=== PATIENT | female | born 1935 | race Caucasian/White ===

== ENCOUNTER 2018-03-22 06:02 | Inpatient (IN) ==
[2018-03-22] MEDS ORDERED: Sodium Chlor 0.9% Inj 60 ML, Bupivacaine Liposo PF 1.3% Inj 20 ML, Bupivacaine/Epi PF 0... P-ARTICULR ONE ×3 (06:50)
[2018-03-22] MEDS ORDERED: Chlorhexidine Gluconate 2% 1 Pack (2 Cloths) TOPICAL ONE (07:00)
[2018-03-22] MEDS ORDERED: SODIUM CHLOR 0.9% IV.SIG SCH (07:00)
[2018-03-22] MEDS ORDERED: TRANEXAMIC ACID IV.SIG SCH (07:00)
[2018-03-22] MEDS ORDERED: Metoprolol Tartrate 25 MG Tablet PO ONE (07:00)
[2018-03-22] MEDS ORDERED: Vancomycin Inj 1,000 MG in Sodium Chlor 0.9% Inj 250 ML IV.SIG SCH (07:00)
[2018-03-22] MEDS ORDERED: Chlorhexidine 4% Topical 120 APPLIC/120 ML Bottle TOPICAL SCH (07:00)
[2018-03-22] MEDS ORDERED: ceFAZolin 2 GM Premix Inj 2 GM/50 ML PIGGYBACK IV.SIG SCH (07:00)
[2018-03-22] MEDS ORDERED: Sodium Chlor 0.9% Inj 500 ML IV.CONT ONE (07:00)
[2018-03-22 07:21] VITALS: BP 160/75; PULSE 65; RESP 20; TEMP 98.2; O2SAT 96
[2018-03-22 07:26] LABS: Bacteria,Urine Rare /hpf; Bilirubin,Urine Negative (Negative); Clarity,Urine Hazy (Clear); Color,Urine Yellow (Yellw/Straw); Glucose,Urine (UA) Negative (Negative); Leukocyte Esterase,Urine Trace (Negative); Mucus,Urine Many /lpf (Occasional); Nitrite,Urine Negative (Negative); Squamous Epithelial Cell,Urine 4 /hpf (0-5)
== END 2018-03-22 07:52 | disposition home or self-care (01) ==
LOC: HSDI 06:02
PROVIDERS: ADMIT Orthopaedic Surgery Orthopaedic Surgery of the Spine; ATTEND Orthopaedic Surgery Orthopaedic Surgery of the Spine